=== PATIENT | male | born 1935 | race Caucasian/White ===

== ENCOUNTER 2017-07-08 12:55 | Emergency (ER) | payer OTHER ==
[~2017-07-08] VITALS: Ht 182.9 cm; Wt 64.6 kg
[~2017-07-08 12:55] MED LIST: BEN10 PO; FINA5TAB1 PO; NADO20TA30 PO; PAX10 PO; PRAV40TA1 PO; TAMS0.4C96 PO
[2017-07-08 13:40] VITALS: BP 150/73
--- NOTE | 2017-07-08 13:46 | NUR ---
PT TAKEN TO XRAY
--- NOTE | 2017-07-08 13:55 | NUR ---
PT AMBULATED TO BED 2
--- NOTE | 2017-07-08 14:07 | NUR ---
C/O COUGH GREEN PLEGM X 1 WK, TOOK NYQUIL, TYLENOL WITH NO RELIEF HX; RT LUNG LOBECTOMY FOR CA, EMPHYSEMA, HTN, HYPERCHOLESTEROL RX; "CAN NOT REMEMBER". PER PT WITH A LITTLE BIT OF DIARRHEA AND NAUSEA, NOT BAD HE ADDED,DENIES VOMITTING; SKIN IS PINK/WARM/DRY; AAOX4 WITH EVEN AND STEADY GAIT; LUNGS CLEAR BL; HR EVEN AND REGULAR; PT DENIES ANY FEVER, CP. PATIENT STATES PAIN OF 0/10 AT THIS TIME; PATIENT POSITIONED FOR COMFORT; HOB ELEVATED; BEDRAILS UP X2; BED DOWN. ER MD MADE AWARE OF PT STATUS.
--- NOTE | 2017-07-08 14:26 | NUR ---
PT READING BOOK WITH ON AND OFF COUGHING, TISSUE AT BEDSIDE
--- NOTE | 2017-07-08 14:29 | NUR ---
DR. NATHANIEL HE BEDSIDE
[2017-07-08 14:58] VITALS: BP 138/77
== END 2017-07-08 14:59 | disposition home or self-care (01) ==
LOC: MED 12:55
DX: R05 Cough (principal); R42 Dizziness and giddiness; I10 Essential (primary) hypertension; E78.00 Pure hypercholesterolemia, unspecified
CPT/HCPCS: 71046; 99284

== ENCOUNTER 2017-07-13 14:45 | Inpatient (IN) | payer OTHER ==
[~2017-07-13] VITALS: Ht 182.9 cm; Wt 71.7 kg
[2017-07-13 14:55] VITALS: BP 122/72
[2017-07-13] MEDS ORDERED: IBUPROFEN 600 MG TAB PO ONE (15:05)
[2017-07-13] MEDS ORDERED: ACETAMINOPHEN EXTRA STRENGTH 500 MG TAB ONE (15:05)
[2017-07-13] MEDS ORDERED: IBUPROFEN 600 MG TAB ONE (15:05)
[2017-07-13] MEDS ORDERED: ACETAMINOPHEN EXTRA STRENGTH 500 MG TAB PO ONE (15:05)
[2017-07-13 16:09] LABS: BASOPHILS # (AUTO) 0.1 K/uL (0.00-0.22); BASOPHILS % (AUTO) 0.7 % (0.0-2.0); EOSINOPHILS # (AUTO) 0.1 K/uL (0-0.4); EOSINOPHILS % (AUTO) 0.8 % (0.0-4.0); HEMATOCRIT 39.8 % (36-52); HEMOGLOBIN 13.1 g/dL (12.0-18.0); LYMPHOCYTES # (AUTO) 0.6 K/uL (2.0-11.5); LYMPHOCYTES % (AUTO) 4.2 % (20.5-51.1); MEAN CORPUSCULAR HEMOGLOBIN 29 pg (27-31); MEAN CORPUSCULAR HGB CONC 33 g/dL (33-37); MONOCYTES # (AUTO) 0.3 K/uL (0.8-1.0); MONOCYTES % (AUTO) 2.1 % (1.7-9.3); NEUTROPHILS # (AUTO) 13.7 K/uL (1.8-7.7); NEUTROPHILS % (AUTO) 92.2 % (42.2-75.2); PLATELET COUNT (AUTO) 311 K/uL (140-450); RED BLOOD CELL COUNT(AUTO) 4.52 MIL/uL (4.20-6.10); RED CELL DISTRIBUTION WIDTH 13.5 % (11.6-13.7); WHITE BLOOD COUNT (AUTO) 14.8 K/uL (4.8-10.8)
[2017-07-13 16:23] LABS: ANION GAP 12.4 (8-16); CARBON DIOXIDE 27.5 mmol/L (21-32); CHLORIDE 97 mmol/L (98-107); GLUCOSE 130 mg/dL (74-106); POTASSIUM 3.9 mmol/L (3.5-5.1); SODIUM SERUM 133 mmol/L (136-145); UREA NITROGEN, BLOOD 19 mg/dL (7-18)
[2017-07-13 16:29] LABS: ALBUMIN 3.1 g/dL (3.4-5.0); ASPARTATE AMINOTRANSFERASE 6 U/L (15-37); TOTAL BILIRUBIN 0.6 mg/dL (0.0-1.0)
[2017-07-13] MEDS ORDERED: LEVOFLOXACIN 750 MG/D5W PREMIX 150 ML IV ONE (17:10)
[2017-07-13] MEDS ORDERED: AZITHROMYCIN 500 MG in DEXTROSE 5% 250 ML IV ONE (17:10)
[2017-07-13] MEDS ORDERED: methylPREDNISolone SS 125 MG in WATER STERILE 2 ML IV ONE (17:15)
[2017-07-13] MEDS ORDERED: DOCUSATE SODIUM 100 MG GELCAP PO PRN (17:20)
[2017-07-13] MEDS ORDERED: HYDROcodone/APAP 7.5/325 MG 1 TAB PO PRN (17:20)
[2017-07-13] MEDS ORDERED: MORPHINE SULFATE 2 MG/ML SYR IVP PRN (17:20)
[2017-07-13] MEDS ORDERED: ONDANSETRON 4 MG/2 ML VIAL IM/IVP PRN (17:20)
[2017-07-13] MEDS ORDERED: ACETAMINOPHEN 325 MG TAB PO PRN (17:20)
[2017-07-13] MEDS ORDERED: BUDESONIDE 0.25 MG/2 ML NEBU INH ONE (17:25)
[2017-07-13] MEDS ORDERED: ALBUTEROL SULFATE/IPRATROPIU 3 ML SOL IH PRN (17:25)
[2017-07-13] MEDS ORDERED: FAMOTIDINE 20 MG TAB PO ONE (17:25)
[2017-07-13] MEDS ORDERED: LORATADINE 10 MG TAB PO ONE ×2 (17:25)
[2017-07-13] MEDS ORDERED: DICYCLOMINE 10 MG CAP PO PRN (17:35)
[2017-07-13 17:57] LABS: PROTHROMBIN TIME 11.3 secs (10.8-13.4)
[2017-07-13] MEDS ORDERED: NACL 0.9% 1,000 ML IV SCH (18:20)
[2017-07-13 18:22] LABS: CHOL/HDL RATIO 2.2 (1-4.5); FREE T4 (FREE THYROXINE) 1.3 ng/dL (0.76-1.46); MAGNESIUM 1.8 mg/dL (1.8-2.4); PHOSPHORUS 3.3 mg/dL (2.5-4.9); THYROID STIMULATING HORMONE 1.34 uIU/mL (0.34-3.74)
[2017-07-13 18:45] VITALS: BP 116/59
[2017-07-13] MEDS: NACL 0.9% 1,000 ML IV SCH (18:45)
[2017-07-13] MEDS ORDERED: methylPREDNISolone SS 125 MG/2 ML VIAL IVP SCH (19:30)
[2017-07-13] MEDS: ALBUTEROL SULFATE/IPRATROPIU 3 ML SOL IH SCH (19:36)
[2017-07-13] MEDS: BUDESONIDE 0.5 MG/2 ML NEBU INH SCH (19:40)
[2017-07-13] MEDS: SIMVASTATIN 20 MG TAB PO SCH (22:58)
[2017-07-13] MEDS: CLINDAMYCIN 900 MG in DEXTROSE 5% 50 ML IV SCH (23:00)
[2017-07-13] MEDS ORDERED: AZITHROMYCIN 500 MG INJ VIAL IV ONE (23:56)
[2017-07-14] VITALS: BP 133/87
[2017-07-14 04:00] VITALS: BP 130/67
[2017-07-14] MEDS: CLINDAMYCIN 900 MG in DEXTROSE 5% 50 ML IV SCH ×3 (05:21→20:20)
[2017-07-14] MEDS: methylPREDNISolone SS 40 MG/ML VIAL IVP SCH ×3 (05:21→20:20)
[2017-07-14 07:00] LABS: HEMATOCRIT 40.7 % (36-52); HEMOGLOBIN 13.3 g/dL (12.0-18.0); MEAN CORPUSCULAR HEMOGLOBIN 29 pg (27-31); MEAN CORPUSCULAR HGB CONC 33 g/dL (33-37); MEAN CORPUSCULAR VOLUME 89.3 fL (80-94); PLATELET COUNT (AUTO) 306 K/uL (140-450); RED BLOOD CELL COUNT(AUTO) 4.56 MIL/uL (4.20-6.10); RED CELL DISTRIBUTION WIDTH 13.3 % (11.6-13.7); WHITE BLOOD COUNT (AUTO) 12.3 K/uL (4.8-10.8)
[2017-07-14] MEDS: ALBUTEROL SULFATE/IPRATROPIU 3 ML SOL IH SCH ×3 (07:00→18:57)
[2017-07-14] MEDS: BUDESONIDE 0.5 MG/2 ML NEBU INH SCH ×2 (07:30→18:57)
[2017-07-14 08:00] VITALS: BP 152/75
[2017-07-14 08:37] LABS: T4 (THYROXINE) 6.4 ug/dL (4.5-12.0)
[2017-07-14 08:44] LABS: ASPARTATE AMINOTRANSFERASE 5 U/L (15-37); CHLORIDE 99 mmol/L (98-107); GLUCOSE 158 mg/dL (74-106); MAGNESIUM 1.9 mg/dL (1.8-2.4); PHOSPHORUS 3.4 mg/dL (2.5-4.9); SODIUM SERUM 137 mmol/L (136-145); TOTAL BILIRUBIN 0.5 mg/dL (0.0-1.0); UREA NITROGEN, BLOOD 19 mg/dL (7-18)
[2017-07-14] MEDS ORDERED: NON-FORMULARY ITEM (Pravastatin Sodium* (Pravachol*) 40 MG) PO SCH (09:00)
[2017-07-14] MEDS: NACL 0.9% 1,000 ML IV SCH ×3 (09:00→23:48)
[2017-07-14] MEDS ORDERED: NADOLOL 20 MG TAB PO SCH (09:00)
[2017-07-14] MEDS: LORATADINE 10 MG TAB PO SCH (09:20)
[2017-07-14] MEDS: TAMSULOSIN 0.4 MG CAP PO SCH (09:20)
[2017-07-14] MEDS: LACTOBACILLUS RHAMNOSUS GG 1 EACH CAP PO SCH (09:20)
[2017-07-14] MEDS: FAMOTIDINE 20 MG TAB PO SCH (09:20)
[2017-07-14] MEDS: METOPROLOL SUCCINATE 50 MG TABER PO SCH (09:21)
[2017-07-14] MEDS: FINASTERIDE 5 MG TAB PO SCH (09:21)
[2017-07-14] MEDS: PARoxetine 10 MG TAB PO SCH (09:21)
[2017-07-14] MEDS ORDERED: methylPREDNISolone SS 40 MG in WATER STERILE 1 ML IV ONE (09:25)
[2017-07-14 09:43] LABS: LYMPHOCYTES % (MANUAL) 4 % (20-46); MONOCYTES % (MANUAL) 1 % (5-12)
[2017-07-14 12:00] VITALS: BP 143/64
[2017-07-14] MEDS ORDERED: LACTULOSE 20 GM/30 ML UDC PO SCH ×2 (13:25→14:25)
[2017-07-14 16:00] VITALS: BP 147/88
[2017-07-14] MEDS ORDERED: LEVOFLOXACIN 750 MG/D5W PREMIX 150 ML IV SCH (17:25)
[2017-07-14] MEDS ORDERED: ACETYLCYSTEINE 10% (100 MG/ML) 100 MG/ML VIAL INH SCH (19:00)
[2017-07-14] MEDS: LEVOFLOXACIN 750 MG/D5W PREMIX 150 ML IV SCH (19:21)
[2017-07-14] MEDS: PROMETH/CODEINE 6.25-10MG/5ML 5 ML UDC PO PRN (19:22)
[2017-07-14 20:00] VITALS: BP 150/79
[2017-07-14] MEDS: SIMVASTATIN 20 MG TAB PO SCH (20:19)
[2017-07-14] MEDS: LACTULOSE 20 GM/30 ML UDC PO SCH (20:19)
[2017-07-14] MEDS ORDERED: methylPREDNISolone SS 125 MG/2 ML VIAL IVP ONE (21:00)
[2017-07-15] VITALS: BP 130/69
[2017-07-15 03:10] LABS: APPEARANCE,URINE CLEAR (CLEAR); BILIRUBIN,URINE NEGATIVE (NEGATIVE); BLOOD, URINE TRACE-I (NEGATIVE); COLOR,URINE YELLOW (YELLOW); LEUKOCYTE ESTERASE ,URINE TRACE (NEGATIVE); NITRITE, URINE NEGATIVE (NEGATIVE); UGLUCOSE NEGATIVE (NEGATIVE)
[2017-07-15 04:00] VITALS: BP 150/71
[2017-07-15] MEDS: CLINDAMYCIN 900 MG in DEXTROSE 5% 50 ML IV SCH ×3 (04:55→20:22)
[2017-07-15] MEDS: methylPREDNISolone SS 40 MG/ML VIAL IVP SCH ×3 (04:55→20:22)
[2017-07-15] MEDS: NACL 0.9% 1,000 ML IV SCH ×3 (04:55→20:28)
[2017-07-15 05:38] LABS: RBC,URINE 0-5 (RARE) /HPF (0-5); WBC,URINE 0-5 (RARE) /HPF (0-5)
[2017-07-15] MEDS: PROMETH/CODEINE 6.25-10MG/5ML 5 ML UDC PO PRN ×3 (05:42→21:04)
[2017-07-15] MEDS: BUDESONIDE 0.5 MG/2 ML NEBU INH SCH ×2 (06:58→19:14)
[2017-07-15] MEDS: ALBUTEROL SULFATE/IPRATROPIU 3 ML SOL IH SCH ×3 (06:58→19:14)
[2017-07-15] MEDS: ACETYLCYSTEINE 10% (100 MG/ML) 100 MG/ML VIAL INH SCH ×3 (06:59→19:16)
[2017-07-15 07:24] LABS: ALBUMIN 2.5 g/dL (3.4-5.0); ANION GAP 12.1 (8-16); ASPARTATE AMINOTRANSFERASE 5 U/L (15-37); CARBON DIOXIDE 26.1 mmol/L (21-32); CHLORIDE 106 mmol/L (98-107); CREATININE 0.9 mg/dL (0.7-1.3); GLUCOSE 149 mg/dL (74-106); MAGNESIUM 1.9 mg/dL (1.8-2.4); PHOSPHORUS 3.3 mg/dL (2.5-4.9); POTASSIUM 4.2 mmol/L (3.5-5.1); SODIUM SERUM 140 mmol/L (136-145); TOTAL BILIRUBIN 0.3 mg/dL (0.0-1.0); UREA NITROGEN, BLOOD 21 mg/dL (7-18)
[2017-07-15 07:29] LABS: BASOPHILS # (AUTO) 0.1 K/uL (0.00-0.22); BASOPHILS % (AUTO) 0.9 % (0.0-2.0); EOSINOPHILS # (AUTO) 0.1 K/uL (0-0.4); EOSINOPHILS % (AUTO) 0.8 % (0.0-4.0); HEMATOCRIT 36.9 % (36-52); HEMOGLOBIN 12.4 g/dL (12.0-18.0); LYMPHOCYTES # (AUTO) 0.6 K/uL (2.0-11.5); LYMPHOCYTES % (AUTO) 3.8 % (20.5-51.1); MEAN CORPUSCULAR HEMOGLOBIN 30 pg (27-31); MEAN CORPUSCULAR HGB CONC 34 g/dL (33-37); MEAN CORPUSCULAR VOLUME 88.1 fL (80-94); MONOCYTES # (AUTO) 0.5 K/uL (0.8-1.0); MONOCYTES % (AUTO) 3.6 % (1.7-9.3); NEUTROPHILS # (AUTO) 13.2 K/uL (1.8-7.7); NEUTROPHILS % (AUTO) 90.9 % (42.2-75.2); PLATELET COUNT (AUTO) 306 K/uL (140-450); RED BLOOD CELL COUNT(AUTO) 4.19 MIL/uL (4.20-6.10); RED CELL DISTRIBUTION WIDTH 13.3 % (11.6-13.7); WHITE BLOOD COUNT (AUTO) 14.5 K/uL (4.8-10.8)
[2017-07-15 08:05] VITALS: BP 137/72
[2017-07-15] MEDS: FINASTERIDE 5 MG TAB PO SCH (08:18)
[2017-07-15] MEDS: FAMOTIDINE 20 MG TAB PO SCH (08:18)
[2017-07-15] MEDS: LORATADINE 10 MG TAB PO SCH (08:18)
[2017-07-15] MEDS: PARoxetine 10 MG TAB PO SCH (08:19)
[2017-07-15] MEDS: TAMSULOSIN 0.4 MG CAP PO SCH (08:19)
[2017-07-15] MEDS: LACTOBACILLUS RHAMNOSUS GG 1 EACH CAP PO SCH (08:19)
[2017-07-15] MEDS: METOPROLOL SUCCINATE 50 MG TABER PO SCH (08:19)
[2017-07-15] MEDS: LACTULOSE 20 GM/30 ML UDC PO SCH ×2 (08:24→20:28)
[2017-07-15] MEDS ORDERED: methylPREDNISolone SS 125 MG/2 ML VIAL IVP ONE (09:00)
[2017-07-15 12:00] VITALS: BP 140/67
[2017-07-15 16:00] VITALS: BP 141/63
[2017-07-15] MEDS: LEVOFLOXACIN 750 MG/D5W PREMIX 150 ML IV SCH (18:16)
[2017-07-15 20:00] VITALS: BP 134/65
[2017-07-15] MEDS: SIMVASTATIN 20 MG TAB PO SCH (20:23)
[2017-07-16] VITALS: BP 126/68
[2017-07-16 04:00] VITALS: BP 148/73
[2017-07-16] MEDS: CLINDAMYCIN 900 MG in DEXTROSE 5% 50 ML IV SCH ×2 (04:03→12:39)
[2017-07-16] MEDS: NACL 0.9% 1,000 ML IV SCH (05:57)
[2017-07-16] MEDS: BUDESONIDE 0.5 MG/2 ML NEBU INH SCH (06:55)
[2017-07-16] MEDS: ALBUTEROL SULFATE/IPRATROPIU 3 ML SOL IH SCH ×2 (06:55→13:14)
[2017-07-16] MEDS: ACETYLCYSTEINE 10% (100 MG/ML) 100 MG/ML VIAL INH SCH ×2 (06:59→13:27)
[2017-07-16 07:08] LABS: ALBUMIN 2.3 g/dL (3.4-5.0); ANION GAP 14.5 (8-16); ASPARTATE AMINOTRANSFERASE 10 U/L (15-37); CARBON DIOXIDE 26.3 mmol/L (21-32); CHLORIDE 105 mmol/L (98-107); CREATININE 0.9 mg/dL (0.7-1.3); GLUCOSE 138 mg/dL (74-106); MAGNESIUM 1.8 mg/dL (1.8-2.4); PHOSPHORUS 3.6 mg/dL (2.5-4.9); POTASSIUM 3.8 mmol/L (3.5-5.1); SODIUM SERUM 142 mmol/L (136-145); TOTAL BILIRUBIN 0.2 mg/dL (0.0-1.0); UREA NITROGEN, BLOOD 22 mg/dL (7-18)
[2017-07-16 07:19] LABS: BASOPHILS # (AUTO) 0.1 K/uL (0.00-0.22); BASOPHILS % (AUTO) 0.4 % (0.0-2.0); EOSINOPHILS % (AUTO) 0.3 % (0.0-4.0); HEMATOCRIT 36.1 % (36-52); HEMOGLOBIN 12.1 g/dL (12.0-18.0); LYMPHOCYTES # (AUTO) 0.6 K/uL (2.0-11.5); LYMPHOCYTES % (AUTO) 4.1 % (20.5-51.1); MEAN CORPUSCULAR HEMOGLOBIN 30 pg (27-31); MEAN CORPUSCULAR HGB CONC 33 g/dL (33-37); MEAN CORPUSCULAR VOLUME 89.5 fL (80-94); MONOCYTES # (AUTO) 0.4 K/uL (0.8-1.0); NEUTROPHILS # (AUTO) 13.8 K/uL (1.8-7.7); NEUTROPHILS % (AUTO) 92.2 % (42.2-75.2); PLATELET COUNT (AUTO) 324 K/uL (140-450); RED BLOOD CELL COUNT(AUTO) 4.04 MIL/uL (4.20-6.10); RED CELL DISTRIBUTION WIDTH 13.4 % (11.6-13.7); WHITE BLOOD COUNT (AUTO) 14.9 K/uL (4.8-10.8)
[2017-07-16 08:00] VITALS: BP 152/68
[2017-07-16] MEDS: LACTULOSE 20 GM/30 ML UDC PO SCH (09:00)
[2017-07-16] MEDS: PARoxetine 10 MG TAB PO SCH (09:07)
[2017-07-16] MEDS: FAMOTIDINE 20 MG TAB PO SCH (09:07)
[2017-07-16] MEDS: TAMSULOSIN 0.4 MG CAP PO SCH (09:07)
[2017-07-16] MEDS: LACTOBACILLUS RHAMNOSUS GG 1 EACH CAP PO SCH (09:07)
[2017-07-16] MEDS: LORATADINE 10 MG TAB PO SCH (09:07)
[2017-07-16] MEDS: FINASTERIDE 5 MG TAB PO SCH (09:08)
[2017-07-16] MEDS: METOPROLOL SUCCINATE 50 MG TABER PO SCH (09:08)
[2017-07-16 12:00] VITALS: BP 142/73
[2017-07-16] MEDS ORDERED: METH4TAB1 PO (13:28)
[2017-07-16] MEDS ORDERED: LACT1.4C PO (13:28)
[2017-07-16] MEDS ORDERED: LEVO750T2 PO (13:28)
[2017-07-16] MEDS ORDERED: CLIN300C2 PO (13:28)
== END 2017-07-16 16:00 | disposition home or self-care (01) | DRG 189 ==
LOC: MED 14:45 → MTU 17:24
PROVIDERS: ADMIT Family Medicine Sports Medicine; ATTEND Family Medicine Sports Medicine
DX: J96.01 Acute respiratory failure with hypoxia (principal); E43 Unspecified severe protein-calorie malnutrition; E86.0 Dehydration; K72.90 Hepatic failure, unspecified without coma; N13.9 Obstructive and reflux uropathy, unspecified; E87.1 Hypo-osmolality and hyponatremia; J44.1 Chronic obstructive pulmonary disease with (acute) exacerbation; N40.0 Benign prostatic hyperplasia without lower urinary tract symptoms; I10 Essential (primary) hypertension; F32.9 Major depressive disorder, single episode, unspecified; E78.5 Hyperlipidemia, unspecified; Z68.21 Body mass index [BMI] 21.0-21.9, adult; Z85.118 Personal history of other malignant neoplasm of bronchus and lung; Z87.891 Personal history of nicotine dependence; Z90.2 Acquired absence of lung [part of]; Z98.1 Arthrodesis status
CPT/HCPCS: 36415; 36600; 71045; 80053; 81001; 82140; 82150; 82550; 82803; 83036; 83605; 83615; 83690; 83735; 83880; 84100; 84436; 84439; 84443; 84479; 84484; 85025; 85610; 85730; 87040; 87081; 87086; 93005; 94640; 97140; 99285; J0456; J1956; J2920; J2930; J3490; J7030; J7060; J7620; J7626; Q0092

== ENCOUNTER 2019-01-03 14:48 | Emergency (ER) | payer OTHER ==
[~2019-01-03] VITALS: Ht 182.9 cm; Wt 65.8 kg
[~2019-01-03 14:48] MED LIST changes: +CLIN300C2 PO; +LACT1.4C PO; +LEVO750T2 PO; +METH4TAB1 PO
[2019-01-03 14:52] VITALS: BP 166/86
[2019-01-03 17:42] VITALS: BP 143/81
== END 2019-01-03 17:41 | disposition home or self-care (01) ==
LOC: MED 14:48
DX: J44.1 Chronic obstructive pulmonary disease with (acute) exacerbation (principal); I10 Essential (primary) hypertension; Z85.118 Personal history of other malignant neoplasm of bronchus and lung; Z98.890 Other specified postprocedural states; Z79.899 Other long term (current) drug therapy; Z79.2 Long term (current) use of antibiotics
CPT/HCPCS: 71045; 99283; Q0092